=== PATIENT | male | born 1960 | race Caucasian/White ===

== ENCOUNTER 2016-11-01 15:24 | Emergency (ER) | payer MEDICAID ==
[2016-11-01 16:11] VITALS: BP 130/83; PULSE 82; RESP 16; TEMP 99.5; O2SAT 93
[2016-11-01] MEDS ORDERED: IPRATROPIUM/ALBUTEROL 3 ML DEYVIAL IH ONE ×2 (17:00→17:29)
--- NOTE | 2016-11-01 17:00 | UCPHY ---
H & P Patient Type: New HPI/ROS: This patient presents with a chief complaint of cough and dyspnea on exertion which has been present for approximately 6 days and gradually worsening. The illness started with a runny nose and sore throat and eventually he developed a cough. He has felt feverish with chills and hot flashes. He denies any chest pain but does have some back pain. Currently denies any sore throat, ear pain or abdominal pain. REVIEW OF SYSTEMS: Constitutional: Fever, malaise Eyes: No complaints ENT: Nasal congestion, no sore throat no ear ache. Respiratory: Cough severe at times enough to cause nausea. Cardiac: No chest pain Gastrointestinal: Questionable nausea no vomiting no diarrhea no abdominal pain Genitourinary: Not addressed Musculoskeletal: Back pain, no neck pain no myalgias Skin: No rash Neurological: No headache Smoking Status: Former smoker Physical Exam: GENERAL: Well-appearing, well-nourished and in no acute distress. HEAD: Atraumatic, normocephalic. EYES: Pupils equal round and reactive to light, extraocular movements intact, sclera anicteric, conjunctiva are normal. ENT: TMs normal, nares patent, oropharynx clear without exudates. Moist mucous membranes. NECK: Normal range of motion, supple without lymphadenopathy or JVD. LUNGS: There are prominent expiratory wheezes and prolongation of the expiratory phase. Rhonchi are also present. I did not hear any rales. HEART: Regular rate and rhythm without murmurs, rubs or gallops. ABDOMEN: Soft, nontender, No guarding, no rebound. No masses appreciated. EXTREMITIES: Normal range of motion, NEUROLOGICAL: Cranial nerves II through XII grossly intact. Normal speech, normal gait. PSYCH: Normal mood, normal affect. SKIN: Warm, dry, normal turgor, no visible rashes or lesions. Back: There is some mild tenderness over the musculature of the lower thoracic back on the right. There is no CVA tenderness Constitutional: Initial Vital Signs Temperature (C) 37.5 C 11/01/16 16:09 Heart Rate 82 11/01/16 16:09 Respiratory Rate 16 11/01/16 16:09 Blood Pressure 130/83 H 11/01/16 16:09 O2 Sat (%) 93 11/01/16 16:09 O2 Delivery Mode Room Air Allergies/Adverse Reactions: No Known Allergies Allergy (Unverified 11/01/16 17:10) Home Medications: Medication Instructions Recorded Albuterol [Albuterol HFA 8 gm] 2 puffs IH QID #1 mdi 11/01/16 predniSONE 20 mg PO DAILY #12 tablet 11/01/16 Medical Decision Making ED Course/Re-evaluation: The patient was given a DuoNeb after which she felt slightly improved. Re- examination at that time revealed markedly diminished wheezes and he was definitely moving air more freely. 17 30 the DuoNeb was repeated and he was given 60 mg of prednisone p.o. afterwards the patient notice definite improvement with his breathing and even his energy level felt improved. Re-examination revealed wheezes in prolongation of the expiratory phase but air movement was much improved. - Data Points Laboratory Results: 11/01/16 16:35 Influenza Typ A,B (DFA) NEGATIVE FOR FLU (NEGATIVE) Medications Given: Discontinued Medications Albuterol/Ipratropium (Duoneb) 3 ml IH EDNOW ONE Stop: 11/01/16 17:01 Last Admin: 11/01/16 17:10 Dose: 3 ml Albuterol/Ipratropium (Duoneb) 3 ml IH EDNOW ONE Stop: 11/01/16 17:30 Last Admin: 11/01/16 17:40 Dose: 3 ml Prednisone (Prednisone) 60 mg PO EDNOW ONE Stop: 11/01/16 17:30 Last Admin: 11/01/16 17:40 Dose: 60 mg Departure - Departure Disposition: Home, Routine, Self-Care Clinical Impression: Bronchitis with bronchospasm Condition: Good Instructions: Bronchospasm (ED), Acute Bronchitis (ED) Additional Instructions: If at any time you feel that your breathing becomes more labored your cough is worse you should return. Keep your appointment on Saturday with the doctor. He Use your inhaler at least 4 times daily but it is safe to use it every 2 hours if necessary. Referrals: ANA VERAS,. [Primary Care Provider] - As per Instructions Prescriptions: Albuterol [Albuterol HFA 8 gm] 2 puffs IH QID #1 mdi predniSONE 20 mg PO DAILY #12 tablet - PQRS PQRS Measurement: Not applicable
[2016-11-01] MEDS ORDERED: ALBUTEROL 3 ML DEYVIAL ONE (17:09)
[2016-11-01] MEDS ORDERED: IPRATROPIUM/ALBUTEROL 3 ML DEYVIAL ONE ×2 (17:11→17:48)
[2016-11-01] MEDS ORDERED: predniSONE 20 MG TAB PO ONE (17:29)
[2016-11-01] MEDS ORDERED: predniSONE 20 MG TAB ONE (17:49)
== END 2016-11-01 18:21 | disposition home or self-care (01) ==
LOC: CED 15:24
DX: J20.9 Acute bronchitis, unspecified (principal)
CPT/HCPCS: 71020-PO; 87400-PO; 96372-PO; 99203-PO; G0463-PO

== ENCOUNTER 2018-05-25 12:16 | Emergency (ER) | payer MEDICAID ==
--- NOTE | 2018-05-25 12:31 | EDPHY ---
H & P Stated Complaint: lip swelling Time Seen by Provider: 05/25/18 12:20 HPI/ROS: 57 yo M states he bit his lip about a week ago and initially it seemed to be getting bettter but today has become markedly swollen and painful. Review of systems As per HPI General no fever no chills no weakness HEENT no eye pain no eye discharge. No eye redness, no sore throat Respiratory no cough, no shortness of breath Cardiac no chest pain, no peripheral edema GI no abdominal pain, no diarrhea, no constipation, no nausea, no vomiting no flank pain, no hematuria, no dysuria Musculoskeletal no myalgias, no joint pain Heme no easy bruising, no easy bleeding Endo no polyuria, no polydipsia Skin no rashes, no pruritus Neuro no syncope, no dizziness, no headaches Psych is no suicidal ideation, no homicidal ideation Source: Patient Exam Limitations: No limitations - Personal History Current Tetanus Diphtheria and Acellular Pertussis (TDAP): Yes - Medical/Surgical History Hx Asthma: No Hx Chronic Respiratory Disease: No Hx Diabetes: No Hx Cardiac Disease: No Hx Renal Disease: No Hx Cirrhosis: No Hx Alcoholism: No Hx HIV/AIDS: No Hx Splenectomy or Spleen Trauma: No Other PMH: DIVERTICULITIS, HIGH CHOLESTEROL - Family History Significant Family History: No pertinent family hx - Social History Smoking Status: Former smoker Alcohol Use: Occasionally Drug Use: None - Physical Exam Exam: 57-year-old male Alert and oriented in no acute distress nontoxic appearance, afebrile Atraumatic normocephalic Mouth-no trismus, no tongue swelling left upper lip with swelling and fluctuance , internal aspect on mucosa of with pustules and fluctuance Neck no JVD Lungs clear to auscultation, no respiratory distress Heart regular rate and rhythm Extremities no cyanosis clubbing edema Constitutional: Initial Vital Signs Temperature (C) 36.6 C 05/25/18 12:30 Heart Rate 74 05/25/18 12:30 Respiratory Rate 18 05/25/18 12:30 Blood Pressure 162/88 H 05/25/18 12:30 O2 Sat (%) 96 05/25/18 12:30 O2 Delivery Mode Room Air Allergies/Adverse Reactions: No Known Allergies Allergy (Unverified 11/01/16 17:10) Home Medications: Medication Instructions Recorded Clindamycin HCl [Clindamycin] 300 mg PO TID 10 Days #30 cap 05/25/18 Statin 05/25/18 Sulindac 05/25/18 Medical Decision Making Procedures: Abscess-procedure note The patient gave verbal consent for drainage of a mucosal abscess. Risk of bleeding and pain were explained to the patient. The most fluctuant aspect of the abscess was identified. Local anesthetic lidocaine 1% was used. An 18 gauge needle was used to open and aspirate the abscess. 10 mL of purulent drainage was expressed. The patient tolerated procedure well. ED Course/Re-evaluation: Pt seen and evlauted for lip swelling Noted to have lip abscess Drained Imp Lip abscess Plan Home on Clindamycin Warm compresses Ibuprofen or Acetaminophen as needed for pain f/u pcp Differential Diagnosis: Differential diagnosis considered but not limited to: Lip abscess, lip cellulitis, lip hematoma, mucosal abscess - Data Points Medications Given: Discontinued Medications Acetaminophen (Tylenol) 1,000 mg PO EDNOW ONE Stop: 05/25/18 13:33 Last Admin: 05/25/18 13:45 Dose: 1,000 mg Ibuprofen (Motrin) 600 mg PO EDNOW ONE Stop: 05/25/18 13:33 Last Admin: 05/25/18 13:46 Dose: 600 mg Departure - Departure Disposition: Home, Routine, Self-Care Clinical Impression: Lip abscess Condition: Good Instructions: Abscess Incision and Drainage (DC) Additional Instructions: apply warm compresses every 1-2 hours to encourage continued drainage antibiotics 3 times a day follow up with your clinic in the next 2-3 days Referrals: NONE *PRIMARY CARE P,. [Primary Care Provider] - As per Instructions Prescriptions: Clindamycin HCl [Clindamycin] 300 mg PO TID 10 Days #30 cap
[2018-05-25] MEDS ORDERED: IBUPROFEN 600 MG TAB PO ONE (13:32)
[2018-05-25] MEDS ORDERED: ACETAMINOPHEN 500 MG TAB PO ONE (13:32)
[2018-05-25] MEDS ORDERED: LIDOCAINE 2% VISCOUS 15 ML UDCUP ONE (13:42)
[2018-05-25 13:48] VITALS: BP 142/62
== END 2018-05-25 13:46 | disposition home or self-care (01) ==
LOC: CED 12:16
PROC: 0H91XZZ Drainage of Face Skin, External Approach (ICD-10-PCS; principal; 2018-05-25)
DX: K13.0 Diseases of lips (principal)

== ENCOUNTER 2019-01-12 20:08 | Emergency (ER) | payer MEDICAID | END 2019-01-12 23:20 | disposition home or self-care (01) | LOC: CED 20:08 ==